=== PATIENT | male | born 1955 | race Caucasian/White ===

== ENCOUNTER 2018-08-31 21:14 | Observation (INO) | payer SELFPAY ==
[~2018-08-31] VITALS: Ht 193 cm; Wt 71.8 kg
[2018-08-31 21:36] LABS: CREATININE ISTAT 0.6 mg/dL (0.5-1.4); HEMOGLOBIN ISTAT 12.9 g/dL (14-18); ION CA ISTAT 1.16 mmol/L (1.13-1.32)
[2018-08-31 21:38] LABS: BASO # 0.1 x10^3/uL (0.0-0.2); BASO % 1 % (0-3); EOS # 0.2 x10^3/uL (0.0-0.7); EOS % 2 % (0-3); HEMATOCRIT 37.9 % (39.0-53.0); HEMOGLOBIN 12.9 g/dL (13.0-17.5); LYMPH # 1.7 x10^3/uL (1.0-4.8); LYMPH % 22 % (24-48); MEAN CORPUSCULAR HEMOGLOBIN 32 pg (25-35); MEAN CORPUSCULAR HGB CONC 34 g/dL (31-37); MEAN CORPUSCULAR VOLUME 94 fL (79-100); MONO # 0.3 x10^3/uL (0.0-1.1); MONO % 5 % (0-9); NEUT # 5.2 x10^3uL (1.8-7.7); NEUT % 70 % (31-73); PLATELET COUNT 177 x10^3/uL (140-400); RED BLOOD COUNT 4.04 x10^6/uL (4.30-5.70); RED CELL DISTRIBUTION WIDTH 12.9 % (11.5-14.5); WHITE BLOOD COUNT 7.4 x10^3/uL (4.0-11.0)
[2018-08-31] MEDS: NITROGLYCERIN SUBLINGUAL 0.4 MG BOTTLE OF 25. SL PRN ×3 (21:40→21:51)
[2018-08-31 21:47] LABS: AMYLASE 65 U/L (25-115); CALCIUM 9.4 mg/dL (8.5-10.1); CREATININE 0.7 mg/dL (0.7-1.3); GFR 113.9; LIPASE 98 U/L (73-393); POTASSIUM 4.1 mmol/L (3.5-5.1)
[2018-08-31 21:53] LABS: ALBUMIN 4.3 g/dL (3.4-5.0); ALBUMIN/GLOBULIN RATIO 1.1 (1.0-1.7); TOTAL BILIRUBIN 0.4 mg/dL (0.2-1.0); TOTAL PROTEIN 8.1 g/dL (6.4-8.2)
--- NOTE | 2018-08-31 21:53 | RAD ---
Chest radiograph 08/31/2018 9:15 PM INDICATION: Chest pain COMPARISON: None available TECHNIQUE: Portable upright frontal view of the chest is provided. FINDINGS: The cardiomediastinal silhouette is mildly enlarged. Median sternotomy changes are present. There are no pleural effusions. There is no pulmonary vascular congestion. There is no pneumothorax. Pulmonary emphysema is noted. No focal airspace consolidation. No significant osseous abnormality is identified. IMPRESSION: COPD changes are present. No focal airspace consolidation. Cardiomegaly. Electronically signed by: Carolyne Grace MD (08/31/2018 9:50 PM) [facility]
[2018-08-31] MEDS ORDERED: MORPHINE SULFATE 10 MG/ML VIAL. IV ONE (22:00)
[2018-08-31] MEDS ORDERED: ASPIRIN 325 MG TABLET PO ONE (22:00)
[2018-08-31] MEDS ORDERED: ONDANSETRON PF 4 MG/2 ML VIAL. IV ONE (22:00)
[2018-08-31 22:12] LABS: PROTHROMBIN TIME PATIENT 13.6 SEC (11.7-14.0)
[2018-08-31] MEDS ORDERED: CONTRAST GIVEN. MC PRN (22:15)
[2018-08-31] MEDS ORDERED: IOHEXOL 350 MG/ML 100 ML VIAL. IV ONE (22:30)
--- NOTE | 2018-08-31 22:50 | RAD ---
PQRS Compliance Statement: One or more of the following individualized dose reduction techniques were utilized for this examination: 1. Automated exposure control 2. Adjustment of the mA and/or kV according to patient size 3. Use of iterative reconstruction technique CT angiography chest, abdomen and pelvis August 31, 2018 INDICATION: Aortic dissection. COMPARISON: None available TECHNIQUE: Multiple axial CT images of the chest, abdomen and pelvis were obtained after the intravenous administration of 90 MLO Omnipaque 350. Coronal and sagittal reformats are provided. Maximum intensity projection images of the aortic vasculature are provided. FINDINGS: Nonvascular findings: Thyroid gland is normal in appearance. There are no pathologically enlarged axillary, mediastinal or hilar lymph nodes. Heart size is enlarged. Median sternotomy changes are present. There is biatrial enlargement. Moderate paraseptal emphysematous changes are identified. Biapical pleural parenchymal scarring is identified. There is a nodular opacity at the right lung apex which measures approximately 2.4 x 1.0 cm which may be associated with scarring, however a parenchymal mass is a differential consideration. There are no pleural effusions. There is bibasilar subsegmental atelectasis. No pulmonary vascular congestion or pneumothorax. Mild bronchial wall thickening is compatible with bronchitis. The liver, spleen, bilateral adrenal glands, pancreas and gallbladder are normal in appearance within the limitations of arterial phase of imaging. Kidneys enhance symmetrically. Numerous subcentimeter hypodense lesions are identified in the right kidney statistically favored represent simple cysts. There is a hypodense lesion in the medial interpolar right kidney measuring 2.7 cm with a thin enhancing septation (Bosniak 2F). There is no hydronephrosis. Small large bowel are normal in caliber. No evidence for bowel obstruction or inflammation. There is moderate colonic diverticulosis without adjacent inflammatory changes. Normal nondilated appendix is visualized. Urinary bladder is within normal limits given degree of distention. No suspicious pelvic masses are identified. No suspicious osseous abnormality is identified. Vascular findings: The aortic root measures 3.2 cm. Sinus of Valsalva measures 3.7 cm. Sinotubular junction measures 3.1 cm. Ascending thoracic aorta measures up to 4.0 cm. Coronary artery vascular calcifications are identified. No evidence for aortic dissection. Minor atherosclerotic plaque is visualized. Visualized portions of the brachiocephalic vessels appear widely patent. Ascending thoracic aorta is normal in course and caliber with mild calcified atheromatous plaque. Origin of celiac axis is widely patent. Superior mesenteric artery is widely patent. Infrarenal abdominal aorta is normal in caliber measuring 1.8 x 1.7 cm distally. There is moderate calcified atheromatous plaque. Right common iliac artery measures 11 mm. Left common iliac artery measures 13 mm. External iliac and internal iliac vessels are normal in caliber with moderate calcified atheromatous plaque involving the internal iliac arteries. IMPRESSION: 1. No evidence for aortic dissection. Ectasia of the ascending thoracic aorta measures up to 4.0 cm. 2. Nodular opacity at the right lung apex most favors scarring measuring 2.4 x 1.0 cm. A parenchymal mass is a differential consideration and a follow-up chest CT in 3 months versus PET/CT may be of benefit. 3. Moderate paraseptal emphysematous changes with mild bronchitis. 4. There is a 2.7 cm Bosniak 2F cyst in the medial interpolar right kidney. A six-month follow-up renal ultrasound or CT abdomen/pelvis may be of benefit to ensure stability. Electronically signed by: Carolyne Grace MD (08/31/2018 10:47 PM) [facility]
[2018-08-31 22:56] LABS: BILIRUBIN,URINE NEGATIVE (NEG); CLARITY,URINE CLEAR; COLOR,URINE YELLOW; NITRITE,URINE NEGATIVE (NEG); PROTEIN,URINE NEGATIVE (NEG-TRACE)
--- NOTE | 2018-08-31 23:00 | PHYS DOC ---
Past Medical History Past Medical History: COPD, Depression, Hypertension, Seizure (ALEE BARON APRN) Past Surgical History: Other Additional Past Surgical Histo: valve replacement (ALEE BARON APRN) Alcohol Use: Heavy Drug Use: Marijuana (ALEE BARON APRN) Adult General Chief Complaint Chief Complaint: CHEST PAIN HPI HPI Patient is a 63 year old male who presents with chest pain times approximately 5 minutes. 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 He has had a history of valve replacement surgery. He was writhing on the bed upon arrival. The patient's EKG was concerning for possible dissection. The patient states that he feels like it is a cramping pressure. He has nausea from the pain. He denies diaphoresis or shortness of breath. The patient does have history of emphysema. (ALEE BARON APRN) Review of Systems Review of Systems Constitutional: Denies fever or chills [] Eyes: Denies change in visual acuity, redness, or eye pain [] HENT: Denies nasal congestion or sore throat [] Respiratory: See history of present illness Cardiovascular: No additional information not addressed in HPI [] GI: See history of present illness : Denies dysuria or hematuria [] Musculoskeletal: Denies back pain or joint pain [] Integument: Denies rash or skin lesions [] Neurologic: Denies headache, focal weakness or sensory changes [] Endocrine: Denies polyuria or polydipsia [] All other systems were reviewed and found to be within normal limits, except as documented in this note. (ALEE BARON APRN) Current Medications Current Medications Current Medications Medications (Trade) Dose Ordered Sig/[facility] Start Time Stop Time Status Last Admin Dose Admin Aspirin (Shlomo Aspirin) 325 mg 1X ONCE 08/31/18 22:00 08/31/18 22:01 DC Info (CONTRAST GIVEN -- Rx MONITORING) 1 each PRN DAILY PRN 08/31/18 22:15 09/01/18 17:36 DC Iohexol (Omnipaque 350 Mg/ml) 90 ml 1X ONCE 08/31/18 22:30 08/31/18 22:31 DC 08/31/18 22:31 90 ML Morphine Sulfate (Morphine Sulfate) 5 mg 1X ONCE 08/31/18 22:00 08/31/18 22:01 DC 08/31/18 21:57 5 MG Nitroglycerin (Nitrostat) 0.4 mg PRN Q5MIN PRN 08/31/18 21:30 08/31/18 23:31 DC 08/31/18 21:51 0.4 MG Ondansetron HCl (Zofran) 4 mg 1X ONCE 08/31/18 22:00 08/31/18 22:01 DC 08/31/18 21:43 4 MG (HERB SILVERIO MD) Allergies Allergies Allergies Coded Allergies Type Severity Reaction Last Updated Verified Penicillins Allergy Intermediate 08/31/18 Yes (HERB SILVERIO MD) Physical Exam Physical Exam Constitutional: Well developed, well nourished, no acute distress, non-toxic appearance. [] HENT: Normocephalic, atraumatic, bilateral external ears normal, oropharynx moist, no oral exudates, nose normal. [] Eyes: PERRLA, EOMI, conjunctiva normal, no discharge. [] Neck: Normal range of motion, no tenderness, supple, no stridor. [] Cardiovascular:Heart rate regular rhythm Lungs & Thorax: Bilateral breath sounds clear to auscultation [] Abdomen: Bowel sounds normal, firm, tenderness to right upper quadrant, no masses, no pulsatile masses. [] Skin: Warm, dry, no erythema, no rash. [] Back: No tenderness, no CVA tenderness. [] Extremities: No tenderness, no cyanosis, no clubbing, ROM intact, no edema. [] Neurologic: Alert and oriented X 3, normal motor function, normal sensory function, no focal deficits noted. [] Psychologic: Affect normal, judgement normal, mood normal. [] (ALEE BARON APRN) Current Patient Data Vital Signs Vital Signs Date Time Temp Pulse Resp B/P (MAP) Pulse Ox O2 Delivery O2 Flow Rate FiO2 08/31/18 22:50 69 16 153/79 (103) 91 Room Air 08/31/18 21:15 98.6 98.6 (HERB SILVERIO MD) Lab Values Laboratory Tests Test 08/31/18 21:23 08/31/18 21:33 08/31/18 22:45 White Blood Count 7.4 x10^3/uL (4.0-11.0) Red Blood Count 4.04 x10^6/uL (4.30-5.70) L Hemoglobin 12.9 g/dL (13.0-17.5) L Hematocrit 37.9 % (39.0-53.0) L Mean Corpuscular Volume 94 fL (79-100) Mean Corpuscular Hemoglobin 32 pg (25-35) Mean Corpuscular Hemoglobin Concent 34 g/dL (31-37) Red Cell Distribution Width 12.9 % (11.5-14.5) Platelet Count 177 x10^3/uL (140-400) Neutrophils (%) (Auto) 70 % (31-73) Lymphocytes (%) (Auto) 22 % (24-48) L Monocytes (%) (Auto) 5 % (0-9) Eosinophils (%) (Auto) 2 % (0-3) Basophils (%) (Auto) 1 % (0-3) Neutrophils # (Auto) 5.2 x10^3uL (1.8-7.7) Lymphocytes # (Auto) 1.7 x10^3/uL (1.0-4.8) Monocytes # (Auto) 0.3 x10^3/uL (0.0-1.1) Eosinophils # (Auto) 0.2 x10^3/uL (0.0-0.7) Basophils # (Auto) 0.1 x10^3/uL (0.0-0.2) Prothrombin Time 13.6 SEC (11.7-14.0) Prothrombin Time INR 1.1 (0.8-1.1) PTT 32 SEC (24-38) Sodium Level 136 mmol/L (136-145) Potassium Level 4.1 mmol/L (3.5-5.1) Chloride Level 98 mmol/L (98-107) Carbon Dioxide Level 25 mmol/L (21-32) Anion Gap 13 (6-14) 16 mmol/L (6-14) H Blood Urea Nitrogen 9 mg/dL (8-26) Creatinine 0.7 mg/dL (0.7-1.3) Estimated GFR (Cockcroft-Gault) 113.9 BUN/Creatinine Ratio 13 (6-20) Glucose Level 97 mg/dL (70-99) 94 mg/dL (70-99) Calcium Level 9.4 mg/dL (8.5-10.1) Total Bilirubin 0.4 mg/dL (0.2-1.0) Aspartate Amino Transferase (AST) 16 U/L (15-37) Alanine Aminotransferase (ALT) 15 U/L (16-63) L Alkaline Phosphatase 59 U/L (46-116) Creatine Kinase 42 U/L (39-308) Creatine Kinase MB (Mass) 1.2 ng/mL (0.0-3.6) Creatine Kinase MB Relative Index 2.9 % (0-4) Troponin I Quantitative < 0.017 ng/mL (0.000-0.055) Total Protein 8.1 g/dL (6.4-8.2) Albumin 4.3 g/dL (3.4-5.0) Albumin/Globulin Ratio 1.1 (1.0-1.7) Amylase Level 65 U/L (25-115) Lipase 98 U/L (73-393) POC Hemoglobin 12.9 g/dL (14-18) L POC Hematocrit 38 % (37-52) POC Sodium 136 mmol/L (135-145) POC Potassium 4.0 mmol/L (3.5-5.0) POC Chloride 100 mmol/L (98-110) POC Total CO2 25 mmol/L (23-32) POC Blood Urea Nitrogen 9 mg/dL (8-26) POC Creatinine 0.6 mg/dL (0.5-1.4) POC Ionized Calcium (Zachariah) 1.16 mmol/L (1.13-1.32) Urine Color Yellow Urine Clarity Clear Urine pH 8.0 Urine Specific [place] 1.020 Urine Protein Negative mg/dL (NEG-TRACE) Urine Glucose (UA) Negative mg/dL (NEG) Urine Ketones (Stick) Negative mg/dL (NEG) Urine Blood Negative (NEG) Urine Nitrite Negative (NEG) Urine Bilirubin Negative (NEG) Urine Urobilinogen Dipstick 1.0 mg/dL (0.2 mg/dL) Urine Leukocyte Esterase Negative (NEG) Urine RBC 0 /HPF (0-2) Urine WBC Occ /HPF (0-4) Urine Squamous Epithelial Cells Occ /LPF Urine Bacteria 0 /HPF (0-FEW) Laboratory Tests 08/31/18 21:23 Laboratory Tests 08/31/18 21:23 08/31/18 21:33 (HERB SILVERIO MD) EKG EKG [] (ALEE BARON APRN) Radiology/Procedures Radiology/Procedures []PATIENT: ADE BLEVINS: [id number]#: [id number] : 1955 LOCATION: ER AGE: 63 SEX: M EXAM STATUS: REG ER ORD. PHYSICIAN: ALEE BARON APRN REASON: abdominal pain, r/o dissection PROCEDURE: CT ANGIO CHEST ABD PELVIS PQRS Compliance Statement: One or more of the following individualized dose reduction techniques were utilized for this examination: 1. Automated exposure control 2. Adjustment of the mA and/or kV according to patient size 3. Use of iterative reconstruction technique CT angiography chest, abdomen and pelvis August 31, 2018 INDICATION: Aortic dissection. COMPARISON: None available TECHNIQUE: Multiple axial CT images of the chest, abdomen and pelvis were obtained after the intravenous administration of 90 MLO Omnipaque 350. Coronal and sagittal reformats are provided. Maximum intensity projection images of the aortic vasculature are provided. FINDINGS: Nonvascular findings: Thyroid gland is normal in appearance. There are no pathologically enlarged axillary, mediastinal or hilar lymph nodes. Heart size is enlarged. Median sternotomy changes are present. There is biatrial enlargement. Moderate paraseptal emphysematous changes are identified. Biapical pleural parenchymal scarring is identified. There is a nodular opacity at the right lung apex which measures approximately 2.4 x 1.0 cm which may be associated with scarring, however a parenchymal mass is a differential consideration. There are no pleural effusions. There is bibasilar subsegmental atelectasis. No pulmonary vascular congestion or pneumothorax. Mild bronchial wall thickening is compatible with bronchitis. The liver, spleen, bilateral adrenal glands, pancreas and gallbladder are normal in appearance within the limitations of arterial phase of imaging. Kidneys enhance symmetrically. Numerous subcentimeter hypodense lesions are identified in the right kidney statistically favored represent simple cysts. There is a hypodense lesion in the medial interpolar right kidney measuring 2.7 cm with a thin enhancing septation (Bosniak 2F). There is no hydronephrosis. Small large bowel are normal in caliber. No evidence for bowel obstruction or inflammation. There is moderate colonic diverticulosis without adjacent inflammatory changes. Normal nondilated appendix is visualized. Urinary bladder is within normal limits given degree of distention. No suspicious pelvic masses are identified. No suspicious osseous abnormality is identified. Vascular findings: The aortic root measures 3.2 cm. Sinus of Valsalva measures 3.7 cm. Sinotubular junction measures 3.1 cm. Ascending thoracic aorta measures up to 4.0 cm. Coronary artery vascular calcifications are identified. No evidence for aortic dissection. Minor atherosclerotic plaque is visualized. Visualized portions of the brachiocephalic vessels appear widely patent. Ascending thoracic aorta is normal in course and caliber with mild calcified atheromatous plaque. Origin of celiac axis is widely patent. Superior mesenteric artery is widely patent. Infrarenal abdominal aorta is normal in caliber measuring 1.8 x 1.7 cm distally. There is moderate calcified atheromatous plaque. Right common iliac artery measures 11 mm. Left common iliac artery measures 13 mm. External iliac and internal iliac vessels are normal in caliber with moderate calcified atheromatous plaque involving the internal iliac arteries. IMPRESSION: 1. No evidence for aortic dissection. Ectasia of the ascending thoracic aorta measures up to 4.0 cm. 2. Nodular opacity at the right lung apex most favors scarring measuring 2.4 x 1.0 cm. A parenchymal mass is a differential consideration and a follow-up chest CT in 3 months versus PET/CT may be of benefit. 3. Moderate paraseptal emphysematous changes with mild bronchitis. 4. There is a 2.7 cm Bosniak 2F cyst in the medial interpolar right kidney. A six-month follow-up renal ultrasound or CT abdomen/pelvis may be of benefit to ensure stability. Electronically signed by: Demetria Martino MD (08/31/2018 10:47 PM) [facility] DICTATED and SIGNED BY: DEMETRIA MARTINO MD DATE: 08/31/18 [id number] (ALEE BARON APRN) Course & Med Decision Making Course & Med Decision Making Pertinent Labs and Imaging studies reviewed. (See chart for details) []The patient's troponin and CT scan were negative for dissection. He will be admitted to observation for serial troponins. He is in agreement with this plan. Cardiology is being consulted. He is being admitted to Dr. Obrien's service. (ALEE BARON APRN) Course & Med Decision Making Staff Physician Addendum: I was working in the ER during the course of this patient's visit. I was available for consultation as needed, I did briefly evaluate this patient (HERB SILVERIO MD) Dragon Disclaimer Dragon Disclaimer This electronic medical record was generated, in whole or in part, using a voice recognition dictation system. (ALEE BARON APRN) Departure Departure Impression: Primary Impression: Chest pain Disposition: ADMITTED INPATIENT Admitting Physician: Other (ALEE BARON APRN) Condition: GOOD Referrals: UNKNOWN PCP NAME (PCP) Scripts Metoprolol Succinate (METOPROLOL SUCCINATE ( XL )) 25 Mg Tab.er.24h 0.5 TAB PO DAILY for HTN for 30 Days, #15 TAB 5 Refills Prov: GINA OBRIEN MD 09/01/18 Amlodipine Besylate (AMLODIPINE BESYLATE) 5 Mg Tablet 5 MG PO DAILY for HTN for 30 Days, #30 TAB Prov: GINA OBRIEN MD 09/01/18 ALEE BARON APRN Aug 31, 2018 23:00 HERB SILVERIO MD Sep 03, 2018 06:42
[2018-08-31 23:02] LABS: BACTERIA,URINE 0 /HPF (0-FEW); RBC,URINE 0 /HPF (0-2); SQUAMOUS EPITHELIAL CELL,UR OCC /LPF; WBC,URINE OCC /HPF (0-4)
[2018-08-31] MEDS ORDERED: ONDANSETRON PF 4 MG/2 ML VIAL. IV PRN (23:30)
[2018-08-31] MEDS ORDERED: NITROGLYCERIN SUBLINGUAL 0.4 MG BOTTLE OF 25. SL PRN (23:30)
[2018-08-31] MEDS ORDERED: MORPHINE SULFATE 4 MG/ML VIAL. IV PRN (23:30)
[2018-09-01] VITALS (7 sets, daily range): BP systolic 132–172; BP diastolic 63–99
[2018-09-01] MEDS: IV NORMAL SALINE 1000ML BAG 1,000 ML IV SCH ×3 (02:29→13:13)
[2018-09-01 04:18] LABS: CHOLESTEROL/HDL RATIO 2.8
--- NOTE | 2018-09-01 06:23 | NUR ---
Patient does not know what prescriptions he takes. Patient states he fills prescriptions at the [facility] [address], in [place]. [phone]. RN checked hours of operation are 8am to 4pm. Unable to reconcile home medications at this time.
[2018-09-01] MEDS: IPRATRPIUM/ALBUTEROL 0.5/2.5MG 3 ML NEBU. NEB SCH ×2 (07:51→12:15)
--- NOTE | 2018-09-01 09:14 | EKG ---
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
--- NOTE | 2018-09-01 09:14 | EKG ---
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
[2018-09-01] MEDS ORDERED: PANTOPRAZOLE 40 MG TABLET.DR. PO ONE (10:00)
[2018-09-01 10:24] LABS: CREATININE 0.7 mg/dL (0.7-1.3); GFR 113.9
--- NOTE | 2018-09-01 10:24 | PDOC2 ---
CARDIAC CONSULT DATE OF CONSULT Date of Consult DATE: 09/01/18 TIME: 09:54 REASON FOR CONSULT Reason for Consult: Chest pain REFERRING PHYSICIAN Referring Physician: Silvina SOURCE Source: Chart review, Patient HISTORY OF PRESENT ILLNESS HISTORY OF PRESENT ILLNESS This is a 63 yo male admitted for complains of chest pain. Reports that he was driving and shoveling snow around the [employer] parking lot last night and started having midchest cramp and sharp pain which is also reproducible with palpation to epigastric region. No jaw tightness or arm heaviness at that time and no dizziness, palpitations but was hard for him to breath because of the pain. He says he always have SOA but its the same all the time. He does smoke marijuana, tobacco and drinks about 2 beers daily with a shot of hard liquor every so often. He has chronic pain and takes about 4 tabs of ibuprofen a day and does not take any pepcid nor prilosec. Denies any past GERD or PUD. He has had 2 cardiac valves repaired or replaced in the past and is taking blood thinners and thinks it is coumadin. The surgery was in 2013. No coronary bypass at that time as he was told he has a coronary that is lie a 20 yo person. He denies any frequent dizziness and no passing out but he did fall from roof 2 months ago but no traumatic injuries except for a broken tailbone but not related to passing out. He takes medications regularly but could not remember it. One information he told me was he was manually shoveling snow last week and after 10 minutes of activity he started having chest tightness, SOA, nausea and diaphoresis, so he stopped. That is the most exertion he has done in the last week. He does not been told in the past that he has bradycardia or any arrhythmias. No fever, chills, or persistent coughing. PAST MEDICAL HISTORY Cardiovascular: HTN Pulmonary: COPD CENTRAL NERVOUS SYSTEM: Seizure (ETOH related and not on seizure med with last episodes prior to 2014 heart surgery) GI: No pertinent hx Heme/Onc: No pertinent hx Hepatobiliary: No pertinent hx Psych: Depression Musculoskeletal: low back pain, Osteoarthritis Rheumatologic: No pertinent hx Infectious disease: No pertinent hx ENT: No pertinent hx Renal/: No pertinent hx Endocrine: No pertinent hx Dermatology: Other (skin CA) PAST SURGICAL HISTORY Past Surgical History: Arthroscopy (left shoulder and left knee repair), Tonsillectomy, Other (open cardiac valve x2 replacement per pt unknown) FAMILY HISTORY Family History: Heart Disease (grandparents) SOCIAL HISTORY Smoke: 1 pack per day (>40 yrs) ALCOHOL: other (2 beers a day) Drugs: Marijuana Lives: Alone CURRENT MEDICATIONS CURRENT MEDICATIONS Current Medications Medications (Trade) Dose Ordered Sig/Ryan Route PRN Reason Start Time Stop Time Status Last Admin Dose Admin Nitroglycerin (Nitrostat) 0.4 mg PRN Q5MIN PRN SL CHEST PAIN 08/31/18 21:30 08/31/18 23:31 DC 08/31/18 21:51 Morphine Sulfate (Morphine Sulfate) 5 mg 1X ONCE IV 08/31/18 22:00 08/31/18 22:01 DC 08/31/18 21:57 Ondansetron HCl (Zofran) 4 mg 1X ONCE IV 08/31/18 22:00 08/31/18 22:01 DC 08/31/18 21:43 Iohexol (Omnipaque 350 Mg/ml) 90 ml 1X ONCE IV 08/31/18 22:30 08/31/18 22:31 DC 08/31/18 22:31 Ondansetron HCl (Zofran) 4 mg PRN Q8HRS PRN IV NAUSEA/VOMITING 1ST CHOICE 08/31/18 23:30 09/01/18 23:29 09/01/18 02:36 Morphine Sulfate (Morphine Sulfate) 4 mg PRN Q2HR PRN IV SEVERE PAIN 08/31/18 23:30 09/01/18 23:29 09/01/18 02:35 Sodium Chloride 1,000 ml @ 125 mls/hr Q8H IV 08/31/18 23:45 09/01/18 23:44 09/01/18 02:31 ALLERGIES ALLERGIES: Coded Allergies: Penicillins (Verified Allergy, Intermediate, 08/31/18) ROS Review of System 14 point ROS evaluated with pertinent positives noted per HPI PHYSICAL EXAM General: Alert, Oriented X3, Cooperative, No acute distress HEENT: Atraumatic, Mucous membr. moist/pink Lungs: Clear to auscultation, Normal air movement Heart: Regular rate (SB), Normal S1, Normal S2, Other (2/6 systolic murmur to LLS border) Abdomen: Soft, Other (epigastric tenderness) Extremities: No cyanosis, No edema Skin: No breakdown, No significant lesion Psych/Mental Status: Mental status NL, Other (flat affect) MUSCULOSKELETAL: Osteoarthritic changes both hands VITALS VITALS Vital Signs Date Time Temp Pulse Resp B/P (MAP) Pulse Ox O2 Delivery O2 Flow Rate FiO2 09/01/18 07:45 Nasal Cannula 2.0 09/01/18 07:20 97.5 63 20 164/82 (109) 99 97.5 LABS Lab: Laboratory Tests Test 08/31/18 21:23 08/31/18 21:33 08/31/18 22:45 09/01/18 00:20 White Blood Count 7.4 x10^3/uL (4.0-11.0) Red Blood Count 4.04 x10^6/uL (4.30-5.70) Hemoglobin 12.9 g/dL (13.0-17.5) Hematocrit 37.9 % (39.0-53.0) Mean Corpuscular Volume 94 fL (79-100) Mean Corpuscular Hemoglobin 32 pg (25-35) Mean Corpuscular Hemoglobin Concent 34 g/dL (31-37) Red Cell Distribution Width 12.9 % (11.5-14.5) Platelet Count 177 x10^3/uL (140-400) Neutrophils (%) (Auto) 70 % (31-73) Lymphocytes (%) (Auto) 22 % (24-48) Monocytes (%) (Auto) 5 % (0-9) Eosinophils (%) (Auto) 2 % (0-3) Basophils (%) (Auto) 1 % (0-3) Neutrophils # (Auto) 5.2 x10^3uL (1.8-7.7) Lymphocytes # (Auto) 1.7 x10^3/uL (1.0-4.8) Monocytes # (Auto) 0.3 x10^3/uL (0.0-1.1) Eosinophils # (Auto) 0.2 x10^3/uL (0.0-0.7) Basophils # (Auto) 0.1 x10^3/uL (0.0-0.2) Prothrombin Time 13.6 SEC (11.7-14.0) Prothromb Time International Ratio 1.1 (0.8-1.1) Activated Partial Thromboplast Time 32 SEC (24-38) Sodium Level 136 mmol/L (136-145) Potassium Level 4.1 mmol/L (3.5-5.1) Chloride Level 98 mmol/L (98-107) Carbon Dioxide Level 25 mmol/L (21-32) Anion Gap 13 (6-14) 16 mmol/L (6-14) Blood Urea Nitrogen 9 mg/dL (8-26) Creatinine 0.7 mg/dL (0.7-1.3) Estimated GFR (Cockcroft-Gault) 113.9 BUN/Creatinine Ratio 13 (6-20) Glucose Level 97 mg/dL (70-99) 94 mg/dL (70-99) Calcium Level 9.4 mg/dL (8.5-10.1) Total Bilirubin 0.4 mg/dL (0.2-1.0) Aspartate Amino Transf (AST/SGOT) 16 U/L (15-37) Alanine Aminotransferase (ALT/SGPT) 15 U/L (16-63) Alkaline Phosphatase 59 U/L (46-116) Creatine Kinase 42 U/L (39-308) Creatine Kinase MB (Mass) 1.2 ng/mL (0.0-3.6) Creatine Kinase MB Relative Index 2.9 % (0-4) Troponin I Quantitative < 0.017 ng/mL (0.000-0.055) < 0.017 ng/mL (0.000-0.055) Total Protein 8.1 g/dL (6.4-8.2) Albumin 4.3 g/dL (3.4-5.0) Albumin/Globulin Ratio 1.1 (1.0-1.7) Amylase Level 65 U/L (25-115) Lipase 98 U/L (73-393) Bedside Hemoglobin 12.9 g/dL (14-18) Bedside Hematocrit 38 % (37-52) Bedside Sodium 136 mmol/L (135-145) Bedside Potassium 4.0 mmol/L (3.5-5.0) Bedside Chloride 100 mmol/L (98-110) Bedside Total CO2 25 mmol/L (23-32) Bedside Blood Urea Nitrogen 9 mg/dL (8-26) Bedside Creatinine 0.6 mg/dL (0.5-1.4) Bedside Ionized Calcium (Zachariah) 1.16 mmol/L (1.13-1.32) Urine Color Yellow Urine Clarity Clear Urine pH 8.0 Urine Specific [place] 1.020 Urine Protein Negative mg/dL (NEG-TRACE) Urine Glucose (UA) Negative mg/dL (NEG) Urine Ketones (Stick) Negative mg/dL (NEG) Urine Blood Negative (NEG) Urine Nitrite Negative (NEG) Urine Bilirubin Negative (NEG) Urine Urobilinogen Dipstick 1.0 mg/dL (0.2 mg/dL) Urine Leukocyte Esterase Negative (NEG) Urine RBC 0 /HPF (0-2) Urine WBC Occ /HPF (0-4) Urine Squamous Epithelial Cells Occ /LPF Urine Bacteria 0 /HPF (0-FEW) Test 09/01/18 03:30 Troponin I Quantitative < 0.017 ng/mL (0.000-0.055) Triglycerides Level 48 mg/dL (0-150) Cholesterol Level 134 mg/dL (0-200) LDL Cholesterol, Calculated 76 mg/dL (0-100) VLDL Cholesterol, Calculated 10 mg/dL (0-40) Non-HDL Cholesterol Calculated 86 mg/dL (0-129) HDL Cholesterol 48 mg/dL (40-60) Cholesterol/HDL Ratio 2.8 ASSESSMENT/PLAN ASSESSMENT/PLAN 1. Atypical CP: suspect GI but he did have typical CP last wk as noted in HPI. 2. Valvular repair: unknown type repair or replacement. 3. HTN: labile 4. Asymptomatic SB: QTc nml. No blocks or pauses. Suspect related to AV juan c blocking agents. Lowest at 38 recorded. 5. Chronic NSAID use 6. Chronic ETOH use: 2 beers a day with hard liquor PRN 7. Marijuana use 8. COPD with tobaccoism 9. Coumadin use?: pt verbalized but INR is nml. Recommendations 1. TTE today. Trops nml and EKG SB without acute ST-t wave changes. MPI today 2. Start on PPI. Discussed about alternatives to NSAIDs. 3. Will obtain accurate med list as pt does not remember it and will [facility] 4. Avoid AV juan c blocking agents. amlodipine x1. 5. TSH, UDS, BMP and Mg 6. SMoking and marijuana cessation and to curb ETOH use. JUSTEN ELLSWORTH APRN Sep 01, 2018 10:24
--- NOTE | 2018-09-01 10:28 | CARD ---
MR#: [id number] Date of Study: 09/01/2018 Ordering Physician: JUSTEN ELLSWORTH, Referring Physician: GINA OBRIEN Tech: Mai Denton RDCS APPROVED REPORT EXAM: Two-dimensional and M-mode echocardiogram with Doppler and color Doppler. Other Information Quality : Good INDICATION Chest Pain Mitral Valve Disease Mitral Valve Annuloplasty-Repair 06/19/14- 36 mm 2D DIMENSIONS RVDd2.8 (2.9-3.5cm)Left Atrium(2D)5.0 (1.6-4.0cm) IVSd1.1 (0.7-1.1cm)Aortic Root(2D)2.9 (2.0-3.7cm) LVDd5.6 (3.9-5.9cm)LVOT Diameter2.4 (1.8-2.4cm) PWd0.9 (0.7-1.1cm)LVDs2.8 (2.5-4.0cm) FS (%) 30.0 %SV124.5 ml LVEF(%)60.0 (>50%) Aortic Valve AoV Peak Petar.136.1cm/sAoV VTI31.9cm AO Peak GR.7.4mmHgLVOT Peak Petar.90.0cm/s LVOT VTI 22.41cmAO Mean GR.4mmHg BHAVANI (VMAX)2.39or1MNR (VTI)3.07cm2 Mitral Valve MV E Jyybmgyh229.3cm/sMV DECEL [id number] MV A Fdauxuql72.8cm/sMV E Mean Gr.3mmHg MV LXL41hnX/A Ratio7.2 MVA (PHT)3.59cm2 TDI E/Lateral E'17.9E/Medial E'20.4 Tricuspid Valve TR P. Jdzddhva414nf/sRAP JLPISIPB6uiDs TR Peak Gr.44hzOdLDGV23mxMk Pulmonary Vein S1 Duqhcamx45.0cm/sD2 Lvostnlm391.9cm/s LEFT VENTRICLE The left ventricle is normal size. There is normal left ventricular wall thickness. The left ventricu lar systolic function is normal. The Ejection Fraction is 60%. There is normal LV segmental wall marcos on. RIGHT VENTRICLE The right ventricle is normal size. The right ventricular systolic function is normal. ATRIA The left atrium is mildly dilated. The right atrium is mildly dilated. The interatrial septum is inta ct with no evidence for an atrial septal defect or patent foramen ovale as noted on 2-D or Doppler im aging. AORTIC VALVE The aortic valve is calcified but opens well. Doppler and Color Flow revealed trace aortic regurgitat ion. There is no significant aortic valvular stenosis. MITRAL VALVE There is no evidence of mitral valve prolapse. The mitral valve mean is 3 mmHg. Doppler and Color-brenda w revealed trace to mild mitral regurgitation. There is an Disla annuloplasty 36mm in the mitral po sition. TRICUSPID VALVE Doppler and Color Flow revealed mild tricuspid regurgitation. There is mild pulmonary hypertension. T he PA pressure was estimated at 39 mmHg. There is no tricuspid valve stenosis. There is a porcine bio prosthetic tricuspid valve. PULMONIC VALVE The pulmonary valve is normal in structure and function. Doppler and Color Flow revealed mild pulmoni c valvular regurgitation. There is no pulmonic valvular stenosis. GREAT VESSELS The aortic root is normal in size. The ascending aorta is not well seen. The IVC is dilated and colla pses >50% with inspiration. PERICARDIAL EFFUSION There is no evidence of significant pericardial effusion. Critical Notification Critical Value: No <Conclusion> The left ventricular systolic function is normal. The Ejection Fraction is 60%. There is normal LV segmental wall motion. There is an Disla annuloplasty ring 36mm in the mitral position. No mitral stenosis. Trace to mild mitral regurgitation. Mild tricuspid regurgitation. There is mild pulmonary hypertension. The PA pressure was estimated at 39 mmHg. There is no evidence of significant pericardial effusion. Signed by : Ozzy Cantu, Electronically Approved : 09/01/2018 10:28:14
[2018-09-01] MEDS ORDERED: amLODIPine BESYLATE 10 MG TABLET PO SCH (11:00)
[2018-09-01] MEDS ORDERED: REGADENOSON 0.4 MG/5 ML DISP.SYRIN. IV ONE (11:00)
[2018-09-01] MEDS ORDERED: FOLI1TAB16 PO (13:03)
[2018-09-01] MEDS ORDERED: LOSA100T14 PO (13:05)
[2018-09-01] MEDS ORDERED: MULT1TAB52 PO (13:05)
[2018-09-01] MEDS ORDERED: CHOL10003 PO (13:05)
[2018-09-01] MEDS ORDERED: METO-269 PO (13:22)
--- NOTE | 2018-09-01 13:51 | PDOC1 ---
History and Physical Date of Admission Date of Admission 09/01/2018 Identification/Chief Complaint Chief Complaint chest pain Problems: (1) Chest pain Source Source: Chart review, Patient History of Present Illness History of Present Illness Patient is a 63-year-old gentleman with past medical history of valvulopathy which required to biological valves to be placed several years ago. The patient is also chronic anticoagulation and takes antihypertensives on the regular basis. Yesterday he was one of the cruise clearing up the snow outside the hospital when after shoveling snow he started complaining of chest discomfort over the precordial area. The patient did not have sensation of impending doom he describes pain as a sharp sensation 8-9 out of 10 intensity with no radiation to the carotids no radiation to the arm or the jaw. The patient denies dyspnea no nausea vomiting or diaphoresis was reported alongside with the discomfort. We were asked to admit the patient for further evaluation and treatment. The patient so far has had 3 sets of cardiac enzymes negative. The patient is laying in bed in no apparent distress the pain is reproducible and seems to be of musculoskeletal nature in my opinion. I have provided reassurance to the patient and plan of care has been delineated in detail. All concerns were addressed to the best of my abilities Past Medical History Cardiovascular: HTN Pulmonary: COPD CENTRAL NERVOUS SYSTEM: Seizure (ETOH related and not on seizure med with last episodes prior to 2013 heart surgery) GI: No pertinent hx Heme/Onc: No pertinent hx Hepatobiliary: No pertinent hx Psych: Depression Rheumatologic: No pertinent hx Infectious disease: No pertinent hx ENT: No pertinent hx Renal/: No pertinent hx Endocrine: No pertinent hx Dermatology: Other (skin CA) Past Surgical History Past Surgical History: Arthroscopy (left shoulder and left knee repair), Tonsillectomy, Other (open cardiac valve x2 replacement per pt unknown) Family History Family History: Heart Disease (grandparents) Social History Smoke: 1 pack per day (>40 yrs) ALCOHOL: other (2 beers a day) Drugs: Marijuana Current Problem List Problem List Problems Medical Problems: (1) Chest pain Status: Acute Current Medications Current Medications Current Medications Medications (Trade) Dose Ordered Sig/Ryan Start Time Stop Time Status Last Admin Dose Admin Albuterol/ Ipratropium (Duoneb) 3 ml RTQID 09/01/18 08:00 09/02/18 07:59 09/01/18 12:15 3 ML Amlodipine Besylate (Norvasc) 10 mg DAILY 09/01/18 11:00 09/01/18 12:18 10 MG Aspirin (Shlomo Aspirin) 325 mg 1X ONCE 08/31/18 22:00 08/31/18 22:01 DC Info (CONTRAST GIVEN -- Rx MONITORING) 1 each PRN DAILY PRN 08/31/18 22:15 09/02/18 22:14 Iohexol (Omnipaque 350 Mg/ml) 90 ml 1X ONCE 08/31/18 22:30 08/31/18 22:31 DC 08/31/18 22:31 90 ML Morphine Sulfate (Morphine Sulfate) 4 mg PRN Q2HR PRN 08/31/18 23:30 09/01/18 23:29 09/01/18 02:35 4 MG Nitroglycerin (Nitrostat) 0.4 mg PRN Q5MIN PRN 08/31/18 23:30 09/01/18 23:29 Ondansetron HCl (Zofran) 4 mg PRN Q8HRS PRN 08/31/18 23:30 09/01/18 23:29 09/01/18 02:36 4 MG Pantoprazole Sodium (Protonix) 40 mg 1X ONCE 09/01/18 10:00 09/01/18 10:09 DC 09/01/18 12:18 40 MG Regadenoson (Lexiscan) 0.4 mg 1X ONCE 09/01/18 11:00 09/01/18 11:01 DC 09/01/18 11:00 0.4 MG Sodium Chloride 1,000 ml @ 125 mls/hr Q8H 08/31/18 23:45 09/01/18 13:17 DC 09/01/18 02:31 125 MLS/HR Allergies Allergies Allergies Coded Allergies Type Severity Reaction Last Updated Verified Penicillins Allergy Intermediate 08/31/18 Yes ROS Review of System CONSTITUTIONAL: No fever or chills EYES: No recent changes SKIN: No rash or itching CARDIOVASCULAR: No chest pain, syncope, palpitations, or edema RESPIRATORY: No SOB or cough GASTROINTESTINAL: No nausea, vomiting or abdominal pain NEUROLOGICAL: No headaches or weakness ENDOCRINE: No cold or heat intolerance GENITOURINARY: No urgency or frequency of urination MUSCULOSKELETAL: No back pain or joint pain LYMPHATICS: No enlarged lymph nodes PSYCHIATRIC: No anxiety or depression Physical Exam Physical Exam GEN.: No apparent distress. Alert and oriented. HEENT: Head is normocephalic, atraumatic NECK: Supple. LUNGS: Clear to auscultation. HEART: RRR, S1, S2 present. Peripheral pulses intact ABDOMEN: Soft, nontender. Positive bowel sounds. EXTREMITIES: Without any cyanosis. NEUROLOGIC: Normal speech, normal tone PSYCHIATRIC: Normal affect, normal mood. SKIN: No ulcerations Vitals Vitals Vital Signs Date Time Temp Pulse Resp B/P (MAP) Pulse Ox O2 Delivery O2 Flow Rate FiO2 09/01/18 12:18 Nasal Cannula 3.0 09/01/18 12:18 52 160/68 09/01/18 11:00 97.5 16 100 97.5 Labs Labs Laboratory Tests Test 08/31/18 21:23 08/31/18 21:33 08/31/18 22:45 09/01/18 00:20 White Blood Count 7.4 x10^3/uL (4.0-11.0) Red Blood Count 4.04 x10^6/uL (4.30-5.70) Hemoglobin 12.9 g/dL (13.0-17.5) Hematocrit 37.9 % (39.0-53.0) Mean Corpuscular Volume 94 fL (79-100) Mean Corpuscular Hemoglobin 32 pg (25-35) Mean Corpuscular Hemoglobin Concent 34 g/dL (31-37) Red Cell Distribution Width 12.9 % (11.5-14.5) Platelet Count 177 x10^3/uL (140-400) Neutrophils (%) (Auto) 70 % (31-73) Lymphocytes (%) (Auto) 22 % (24-48) Monocytes (%) (Auto) 5 % (0-9) Eosinophils (%) (Auto) 2 % (0-3) Basophils (%) (Auto) 1 % (0-3) Neutrophils # (Auto) 5.2 x10^3uL (1.8-7.7) Lymphocytes # (Auto) 1.7 x10^3/uL (1.0-4.8) Monocytes # (Auto) 0.3 x10^3/uL (0.0-1.1) Eosinophils # (Auto) 0.2 x10^3/uL (0.0-0.7) Basophils # (Auto) 0.1 x10^3/uL (0.0-0.2) Prothrombin Time 13.6 SEC (11.7-14.0) Prothromb Time International Ratio 1.1 (0.8-1.1) Activated Partial Thromboplast Time 32 SEC (24-38) Sodium Level 136 mmol/L (136-145) Potassium Level 4.1 mmol/L (3.5-5.1) Chloride Level 98 mmol/L (98-107) Carbon Dioxide Level 25 mmol/L (21-32) Anion Gap 13 (6-14) 16 mmol/L (6-14) Blood Urea Nitrogen 9 mg/dL (8-26) Creatinine 0.7 mg/dL (0.7-1.3) Estimated GFR (Cockcroft-Gault) 113.9 BUN/Creatinine Ratio 13 (6-20) Glucose Level 97 mg/dL (70-99) 94 mg/dL (70-99) Calcium Level 9.4 mg/dL (8.5-10.1) Total Bilirubin 0.4 mg/dL (0.2-1.0) Aspartate Amino Transf (AST/SGOT) 16 U/L (15-37) Alanine Aminotransferase (ALT/SGPT) 15 U/L (16-63) Alkaline Phosphatase 59 U/L (46-116) Creatine Kinase 42 U/L (39-308) Creatine Kinase MB (Mass) 1.2 ng/mL (0.0-3.6) Creatine Kinase MB Relative Index 2.9 % (0-4) Troponin I Quantitative < 0.017 ng/mL (0.000-0.055) < 0.017 ng/mL (0.000-0.055) Total Protein 8.1 g/dL (6.4-8.2) Albumin 4.3 g/dL (3.4-5.0) Albumin/Globulin Ratio 1.1 (1.0-1.7) Amylase Level 65 U/L (25-115) Lipase 98 U/L (73-393) Bedside Hemoglobin 12.9 g/dL (14-18) Bedside Hematocrit 38 % (37-52) Bedside Sodium 136 mmol/L (135-145) Bedside Potassium 4.0 mmol/L (3.5-5.0) Bedside Chloride 100 mmol/L (98-110) Bedside Total CO2 25 mmol/L (23-32) Bedside Blood Urea Nitrogen 9 mg/dL (8-26) Bedside Creatinine 0.6 mg/dL (0.5-1.4) Bedside Ionized Calcium (Zachariah) 1.16 mmol/L (1.13-1.32) Urine Color Yellow Urine Clarity Clear Urine pH 8.0 Urine Specific Stephenson 1.020 Urine Protein Negative mg/dL (NEG-TRACE) Urine Glucose (UA) Negative mg/dL (NEG) Urine Ketones (Stick) Negative mg/dL (NEG) Urine Blood Negative (NEG) Urine Nitrite Negative (NEG) Urine Bilirubin Negative (NEG) Urine Urobilinogen Dipstick 1.0 mg/dL (0.2 mg/dL) Urine Leukocyte Esterase Negative (NEG) Urine RBC 0 /HPF (0-2) Urine WBC Occ /HPF (0-4) Urine Squamous Epithelial Cells Occ /LPF Urine Bacteria 0 /HPF (0-FEW) Test 09/01/18 03:30 Sodium Level 137 mmol/L (136-145) Potassium Level 4.0 mmol/L (3.5-5.1) Chloride Level 100 mmol/L (98-107) Carbon Dioxide Level 26 mmol/L (21-32) Anion Gap 11 (6-14) Blood Urea Nitrogen 10 mg/dL (8-26) Creatinine 0.7 mg/dL (0.7-1.3) Estimated GFR (Cockcroft-Gault) 113.9 Glucose Level 91 mg/dL (70-99) Calcium Level 9.0 mg/dL (8.5-10.1) Magnesium Level 2.0 mg/dL (1.8-2.4) Troponin I Quantitative < 0.017 ng/mL (0.000-0.055) Triglycerides Level 48 mg/dL (0-150) Cholesterol Level 134 mg/dL (0-200) LDL Cholesterol, Calculated 76 mg/dL (0-100) VLDL Cholesterol, Calculated 10 mg/dL (0-40) Non-HDL Cholesterol Calculated 86 mg/dL (0-129) HDL Cholesterol 48 mg/dL (40-60) Cholesterol/HDL Ratio 2.8 Thyroid Stimulating Hormone (TSH) 3.449 uIU/mL (0.358-3.74) Laboratory Tests Test 08/31/18 21:23 08/31/18 21:33 08/31/18 22:45 09/01/18 00:20 White Blood Count 7.4 x10^3/uL (4.0-11.0) Red Blood Count 4.04 x10^6/uL (4.30-5.70) Hemoglobin 12.9 g/dL (13.0-17.5) Hematocrit 37.9 % (39.0-53.0) Mean Corpuscular Volume 94 fL (79-100) Mean Corpuscular Hemoglobin 32 pg (25-35) Mean Corpuscular Hemoglobin Concent 34 g/dL (31-37) Red Cell Distribution Width 12.9 % (11.5-14.5) Platelet Count 177 x10^3/uL (140-400) Neutrophils (%) (Auto) 70 % (31-73) Lymphocytes (%) (Auto) 22 % (24-48) Monocytes (%) (Auto) 5 % (0-9) Eosinophils (%) (Auto) 2 % (0-3) Basophils (%) (Auto) 1 % (0-3) Neutrophils # (Auto) 5.2 x10^3uL (1.8-7.7) Lymphocytes # (Auto) 1.7 x10^3/uL (1.0-4.8) Monocytes # (Auto) 0.3 x10^3/uL (0.0-1.1) Eosinophils # (Auto) 0.2 x10^3/uL (0.0-0.7) Basophils # (Auto) 0.1 x10^3/uL (0.0-0.2) Prothrombin Time 13.6 SEC (11.7-14.0) Prothromb Time International Ratio 1.1 (0.8-1.1) Activated Partial Thromboplast Time 32 SEC (24-38) Sodium Level 136 mmol/L (136-145) Potassium Level 4.1 mmol/L (3.5-5.1) Chloride Level 98 mmol/L (98-107) Carbon Dioxide Level 25 mmol/L (21-32) Anion Gap 13 (6-14) 16 mmol/L (6-14) Blood Urea Nitrogen 9 mg/dL (8-26) Creatinine 0.7 mg/dL (0.7-1.3) Estimated GFR (Cockcroft-Gault) 113.9 BUN/Creatinine Ratio 13 (6-20) Glucose Level 97 mg/dL (70-99) 94 mg/dL (70-99) Calcium Level 9.4 mg/dL (8.5-10.1) Total Bilirubin 0.4 mg/dL (0.2-1.0) Aspartate Amino Transf (AST/SGOT) 16 U/L (15-37) Alanine Aminotransferase (ALT/SGPT) 15 U/L (16-63) Alkaline Phosphatase 59 U/L (46-116) Creatine Kinase 42 U/L (39-308) Creatine Kinase MB (Mass) 1.2 ng/mL (0.0-3.6) Creatine Kinase MB Relative Index 2.9 % (0-4) Troponin I Quantitative < 0.017 ng/mL (0.000-0.055) < 0.017 ng/mL (0.000-0.055) Total Protein 8.1 g/dL (6.4-8.2) Albumin 4.3 g/dL (3.4-5.0) Albumin/Globulin Ratio 1.1 (1.0-1.7) Amylase Level 65 U/L (25-115) Lipase 98 U/L (73-393) Bedside Hemoglobin 12.9 g/dL (14-18) Bedside Hematocrit 38 % (37-52) Bedside Sodium 136 mmol/L (135-145) Bedside Potassium 4.0 mmol/L (3.5-5.0) Bedside Chloride 100 mmol/L (98-110) Bedside Total CO2 25 mmol/L (23-32) Bedside Blood Urea Nitrogen 9 mg/dL (8-26) Bedside Creatinine 0.6 mg/dL (0.5-1.4) Bedside Ionized Calcium (Zachariah) 1.16 mmol/L (1.13-1.32) Urine Color Yellow Urine Clarity Clear Urine pH 8.0 Urine Specific Stephenson 1.020 Urine Protein Negative mg/dL (NEG-TRACE) Urine Glucose (UA) Negative mg/dL (NEG) Urine Ketones (Stick) Negative mg/dL (NEG) Urine Blood Negative (NEG) Urine Nitrite Negative (NEG) Urine Bilirubin Negative (NEG) Urine Urobilinogen Dipstick 1.0 mg/dL (0.2 mg/dL) Urine Leukocyte Esterase Negative (NEG) Urine RBC 0 /HPF (0-2) Urine WBC Occ /HPF (0-4) Urine Squamous Epithelial Cells Occ /LPF Urine Bacteria 0 /HPF (0-FEW) Test 09/01/18 03:30 Sodium Level 137 mmol/L (136-145) Potassium Level 4.0 mmol/L (3.5-5.1) Chloride Level 100 mmol/L (98-107) Carbon Dioxide Level 26 mmol/L (21-32) Anion Gap 11 (6-14) Blood Urea Nitrogen 10 mg/dL (8-26) Creatinine 0.7 mg/dL (0.7-1.3) Estimated GFR (Cockcroft-Gault) 113.9 Glucose Level 91 mg/dL (70-99) Calcium Level 9.0 mg/dL (8.5-10.1) Magnesium Level 2.0 mg/dL (1.8-2.4) Troponin I Quantitative < 0.017 ng/mL (0.000-0.055) Triglycerides Level 48 mg/dL (0-150) Cholesterol Level 134 mg/dL (0-200) LDL Cholesterol, Calculated 76 mg/dL (0-100) VLDL Cholesterol, Calculated 10 mg/dL (0-40) Non-HDL Cholesterol Calculated 86 mg/dL (0-129) HDL Cholesterol 48 mg/dL (40-60) Cholesterol/HDL Ratio 2.8 Thyroid Stimulating Hormone (TSH) 3.449 uIU/mL (0.358-3.74) VTE Prophylaxis Ordered VTE Prophylaxis Devices: No VTE Pharmacological Prophylaxi: Yes Assessment/Plan Assessment/Plan Chest pain reproducible musculoskeletal in nature most likely Valvulopathy status post biological valve replacement Essential hypertension fairly controlled History of chronic anticoagulation Plan: Follow quality compliance consultant recommendations. Patient currently has 3 sets of cardiac enzymes negative Patient will be sent for an echocardiogram transthoracic. Further recommendations based on energy consultant's recommendations DVT prophylaxis with hsi chornic anticoagulation Problem Qualifiers (1) Chest pain: Chest pain type: other chest pain Qualified Codes: R07.89 - Other chest pain GINA OBRIEN MD Sep 01, 2018 13:51
--- NOTE | 2018-09-01 14:03 | RAD ---
MR#: [id number] Date of Study: 09/01/2018 Ordering Physician: JUSTEN ELLSWORTH, Referring Physician: ANGELES MUNOZ Tech: EVERARDO Hagen APPROVED REPORT Test Type: Pharmacological Stress Nurse/Tech: Lara Gutierres R.N. Test Indications: cp, dyspnea Cardiac History: cabg 2013, copd,htn,smoker Medications: see ehr Medical History: see ehr Resting ECG: sb with pvcs and pacs noted Resting Heart Rate: 52 bpm Resting Blood Pressure: 175/75mmHg Pretest Chest Pain: Typical angina Nurse/Tech Notes lungs diminished, on O2 at 3L/nc Consent: The procedure was explained to the patient in lay terms. Informed consent was witnessed. Bill eout was entered into [employer]. History and Stress Test performed by EVERARDO Hagen Pharm. Details Pharmacologic stress testing was performed using 0.4mg per 5ml of regadenoson given intravenously ove r 7-10 seconds. Stress Symptoms Dyspnea, pt c/o cp before start of procedure 2/10, pain increased to 8/10 in first minute of recovery and then subsided to 3/10 at end of recovery, no changes noted to ECG POST EXERCISE Reason for Termination: Infusion complete Target HR: No Max HR: 68 bpm Max Blood Pressure: 163/74mmHg Chest Pain: Yes. see above Arrhythmia: Yes. pvcs and pacs intermittantly throughout test ST Change: No. INTERPRETATION Stress EKG Conclusion: No acute ischemic changes noted. Imaging Protocol IMAGE PROTOCOL: Rest Tc-99m/stress Tc-99m 1 day Rest: Stress: Viability: Radiopharm.Tc99m [id number] Sestamibi Dose10.7mCi 33mCi Duration 15min. 10min. Img Date 09/01/2018 09/01/2018 Inj-Img [id number]. 60min. Rest Admin Site:IV - Left ForearmAdministrator:EVERARDO Hagen Stress Admin Site: IV - Left ForearmAdministrator: EVERARDO Hagen STRESS DATA End Diast. Vol.176.0mlAv. Heart Rate69.0bpm End Syst. Vol.42.0mlCO Index BSA9.2L/min Myocardial Wwbx987.0gEject. Ulqtfhfw38.0% Stress Rates Pk. Fill Rate3.07EDV/secLVtime Pk. Fill 160.84msec Pk. Empty Rate3.54ESV/secLVtime Pk. Tnhwy212.74msec 1/3 Pk. Fill1.39EDV/sec Stress Scores Regional WT0.00Summed WT0.00 Regional WM0.00Summed WM1.00 The rest and stress images show normal perfusion, normal contraction and thickening. LV Perf. Quant 17 Seg. SSS1.00 17 Seg. SRS0.00 17 Seg. SDS1.00 Stress Defect Extent (% LAD)0.00Rest Defect Extent (% LAD)0.00Rev. Defect Extent (% LAD)0.00 Stress Defect Extent (% LCX) 8.80Rest Defect Extent (% LCX)10.00Rev. Defect Extent (% LCX)3.80 Stress Defect Extent (% RCA)0.00Rest Defect Extent (% RCA)0.00Rev. Defect Extent (% RCA)0.00 Stress Defect Extent (% KRISHAN)1.50Rest Defect Extent (% KRISHAN)1.70Rev. Defect Extent (% KRISHAN)0.70 Other Information Quality:Fair Risk Assessment: Low Risk Conclusion 1. No evidence of EKG changes with stress testing. 2. Normal perfusion at stress/rest. 3. Low risk study. 4. EF > 60%. Signed by : Kirit Guerrero, Electronically Approved : 09/01/2018 14:03:12
[2018-09-01] MEDS ORDERED: LOSARTAN POTASSIUM 50 MG TABLET. PO SCH (14:30)
[2018-09-01] MEDS ORDERED: METO-239 PO (14:38)
[2018-09-01] MEDS ORDERED: AMLO5TAB10 PO (14:38)
--- NOTE | 2018-09-01 14:42 | PDOC3 ---
Discharge Summary Visit Information Date of Admission: Sep 01, 2018 Date of Discharge: Sep 01, 2018 Admitting Diagnosis: chest pain Final Diagnosis Problems Medical Problems: (1) Chest pain most likely musculoskeletal Status: Acute Brief Hospital Course Allergies Allergies Coded Allergies Type Severity Reaction Last Updated Verified Penicillins Allergy Intermediate 08/31/18 Yes Vital Signs Vital Signs Date Time Temp Pulse Resp B/P (MAP) Pulse Ox O2 Delivery O2 Flow Rate FiO2 09/01/18 12:18 Nasal Cannula 3.0 09/01/18 12:18 52 160/68 09/01/18 11:00 97.5 16 100 97.5 Lab Results Laboratory Tests Test 08/31/18 21:23 08/31/18 21:33 08/31/18 22:45 09/01/18 00:20 White Blood Count 7.4 x10^3/uL (4.0-11.0) Red Blood Count 4.04 x10^6/uL (4.30-5.70) Hemoglobin 12.9 g/dL (13.0-17.5) Hematocrit 37.9 % (39.0-53.0) Mean Corpuscular Volume 94 fL (79-100) Mean Corpuscular Hemoglobin 32 pg (25-35) Mean Corpuscular Hemoglobin Concent 34 g/dL (31-37) Red Cell Distribution Width 12.9 % (11.5-14.5) Platelet Count 177 x10^3/uL (140-400) Neutrophils (%) (Auto) 70 % (31-73) Lymphocytes (%) (Auto) 22 % (24-48) Monocytes (%) (Auto) 5 % (0-9) Eosinophils (%) (Auto) 2 % (0-3) Basophils (%) (Auto) 1 % (0-3) Neutrophils # (Auto) 5.2 x10^3uL (1.8-7.7) Lymphocytes # (Auto) 1.7 x10^3/uL (1.0-4.8) Monocytes # (Auto) 0.3 x10^3/uL (0.0-1.1) Eosinophils # (Auto) 0.2 x10^3/uL (0.0-0.7) Basophils # (Auto) 0.1 x10^3/uL (0.0-0.2) Prothrombin Time 13.6 SEC (11.7-14.0) Prothromb Time International Ratio 1.1 (0.8-1.1) Activated Partial Thromboplast Time 32 SEC (24-38) Sodium Level 136 mmol/L (136-145) Potassium Level 4.1 mmol/L (3.5-5.1) Chloride Level 98 mmol/L (98-107) Carbon Dioxide Level 25 mmol/L (21-32) Anion Gap 13 (6-14) 16 mmol/L (6-14) Blood Urea Nitrogen 9 mg/dL (8-26) Creatinine 0.7 mg/dL (0.7-1.3) Estimated GFR (Cockcroft-Gault) 113.9 BUN/Creatinine Ratio 13 (6-20) Glucose Level 97 mg/dL (70-99) 94 mg/dL (70-99) Calcium Level 9.4 mg/dL (8.5-10.1) Total Bilirubin 0.4 mg/dL (0.2-1.0) Aspartate Amino Transf (AST/SGOT) 16 U/L (15-37) Alanine Aminotransferase (ALT/SGPT) 15 U/L (16-63) Alkaline Phosphatase 59 U/L (46-116) Creatine Kinase 42 U/L (39-308) Creatine Kinase MB (Mass) 1.2 ng/mL (0.0-3.6) Creatine Kinase MB Relative Index 2.9 % (0-4) Troponin I Quantitative < 0.017 ng/mL (0.000-0.055) < 0.017 ng/mL (0.000-0.055) Total Protein 8.1 g/dL (6.4-8.2) Albumin 4.3 g/dL (3.4-5.0) Albumin/Globulin Ratio 1.1 (1.0-1.7) Amylase Level 65 U/L (25-115) Lipase 98 U/L (73-393) Bedside Hemoglobin 12.9 g/dL (14-18) Bedside Hematocrit 38 % (37-52) Bedside Sodium 136 mmol/L (135-145) Bedside Potassium 4.0 mmol/L (3.5-5.0) Bedside Chloride 100 mmol/L (98-110) Bedside Total CO2 25 mmol/L (23-32) Bedside Blood Urea Nitrogen 9 mg/dL (8-26) Bedside Creatinine 0.6 mg/dL (0.5-1.4) Bedside Ionized Calcium (Zachariah) 1.16 mmol/L (1.13-1.32) Urine Color Yellow Urine Clarity Clear Urine pH 8.0 Urine Specific Alfred 1.020 Urine Protein Negative mg/dL (NEG-TRACE) Urine Glucose (UA) Negative mg/dL (NEG) Urine Ketones (Stick) Negative mg/dL (NEG) Urine Blood Negative (NEG) Urine Nitrite Negative (NEG) Urine Bilirubin Negative (NEG) Urine Urobilinogen Dipstick 1.0 mg/dL (0.2 mg/dL) Urine Leukocyte Esterase Negative (NEG) Urine RBC 0 /HPF (0-2) Urine WBC Occ /HPF (0-4) Urine Squamous Epithelial Cells Occ /LPF Urine Bacteria 0 /HPF (0-FEW) Test 09/01/18 03:30 Sodium Level 137 mmol/L (136-145) Potassium Level 4.0 mmol/L (3.5-5.1) Chloride Level 100 mmol/L (98-107) Carbon Dioxide Level 26 mmol/L (21-32) Anion Gap 11 (6-14) Blood Urea Nitrogen 10 mg/dL (8-26) Creatinine 0.7 mg/dL (0.7-1.3) Estimated GFR (Cockcroft-Gault) 113.9 Glucose Level 91 mg/dL (70-99) Calcium Level 9.0 mg/dL (8.5-10.1) Magnesium Level 2.0 mg/dL (1.8-2.4) Troponin I Quantitative < 0.017 ng/mL (0.000-0.055) Triglycerides Level 48 mg/dL (0-150) Cholesterol Level 134 mg/dL (0-200) LDL Cholesterol, Calculated 76 mg/dL (0-100) VLDL Cholesterol, Calculated 10 mg/dL (0-40) Non-HDL Cholesterol Calculated 86 mg/dL (0-129) HDL Cholesterol 48 mg/dL (40-60) Cholesterol/HDL Ratio 2.8 Thyroid Stimulating Hormone (TSH) 3.449 uIU/mL (0.358-3.74) Laboratory Tests Test 08/31/18 21:23 08/31/18 21:33 08/31/18 22:45 09/01/18 00:20 White Blood Count 7.4 x10^3/uL (4.0-11.0) Red Blood Count 4.04 x10^6/uL (4.30-5.70) Hemoglobin 12.9 g/dL (13.0-17.5) Hematocrit 37.9 % (39.0-53.0) Mean Corpuscular Volume 94 fL (79-100) Mean Corpuscular Hemoglobin 32 pg (25-35) Mean Corpuscular Hemoglobin Concent 34 g/dL (31-37) Red Cell Distribution Width 12.9 % (11.5-14.5) Platelet Count 177 x10^3/uL (140-400) Neutrophils (%) (Auto) 70 % (31-73) Lymphocytes (%) (Auto) 22 % (24-48) Monocytes (%) (Auto) 5 % (0-9) Eosinophils (%) (Auto) 2 % (0-3) Basophils (%) (Auto) 1 % (0-3) Neutrophils # (Auto) 5.2 x10^3uL (1.8-7.7) Lymphocytes # (Auto) 1.7 x10^3/uL (1.0-4.8) Monocytes # (Auto) 0.3 x10^3/uL (0.0-1.1) Eosinophils # (Auto) 0.2 x10^3/uL (0.0-0.7) Basophils # (Auto) 0.1 x10^3/uL (0.0-0.2) Prothrombin Time 13.6 SEC (11.7-14.0) Prothromb Time International Ratio 1.1 (0.8-1.1) Activated Partial Thromboplast Time 32 SEC (24-38) Sodium Level 136 mmol/L (136-145) Potassium Level 4.1 mmol/L (3.5-5.1) Chloride Level 98 mmol/L (98-107) Carbon Dioxide Level 25 mmol/L (21-32) Anion Gap 13 (6-14) 16 mmol/L (6-14) Blood Urea Nitrogen 9 mg/dL (8-26) Creatinine 0.7 mg/dL (0.7-1.3) Estimated GFR (Cockcroft-Gault) 113.9 BUN/Creatinine Ratio 13 (6-20) Glucose Level 97 mg/dL (70-99) 94 mg/dL (70-99) Calcium Level 9.4 mg/dL (8.5-10.1) Total Bilirubin 0.4 mg/dL (0.2-1.0) Aspartate Amino Transf (AST/SGOT) 16 U/L (15-37) Alanine Aminotransferase (ALT/SGPT) 15 U/L (16-63) Alkaline Phosphatase 59 U/L (46-116) Creatine Kinase 42 U/L (39-308) Creatine Kinase MB (Mass) 1.2 ng/mL (0.0-3.6) Creatine Kinase MB Relative Index 2.9 % (0-4) Troponin I Quantitative < 0.017 ng/mL (0.000-0.055) < 0.017 ng/mL (0.000-0.055) Total Protein 8.1 g/dL (6.4-8.2) Albumin 4.3 g/dL (3.4-5.0) Albumin/Globulin Ratio 1.1 (1.0-1.7) Amylase Level 65 U/L (25-115) Lipase 98 U/L (73-393) Bedside Hemoglobin 12.9 g/dL (14-18) Bedside Hematocrit 38 % (37-52) Bedside Sodium 136 mmol/L (135-145) Bedside Potassium 4.0 mmol/L (3.5-5.0) Bedside Chloride 100 mmol/L (98-110) Bedside Total CO2 25 mmol/L (23-32) Bedside Blood Urea Nitrogen 9 mg/dL (8-26) Bedside Creatinine 0.6 mg/dL (0.5-1.4) Bedside Ionized Calcium (Zachariah) 1.16 mmol/L (1.13-1.32) Urine Color Yellow Urine Clarity Clear Urine pH 8.0 Urine Specific Alfred 1.020 Urine Protein Negative mg/dL (NEG-TRACE) Urine Glucose (UA) Negative mg/dL (NEG) Urine Ketones (Stick) Negative mg/dL (NEG) Urine Blood Negative (NEG) Urine Nitrite Negative (NEG) Urine Bilirubin Negative (NEG) Urine Urobilinogen Dipstick 1.0 mg/dL (0.2 mg/dL) Urine Leukocyte Esterase Negative (NEG) Urine RBC 0 /HPF (0-2) Urine WBC Occ /HPF (0-4) Urine Squamous Epithelial Cells Occ /LPF Urine Bacteria 0 /HPF (0-FEW) Test 09/01/18 03:30 Sodium Level 137 mmol/L (136-145) Potassium Level 4.0 mmol/L (3.5-5.1) Chloride Level 100 mmol/L (98-107) Carbon Dioxide Level 26 mmol/L (21-32) Anion Gap 11 (6-14) Blood Urea Nitrogen 10 mg/dL (8-26) Creatinine 0.7 mg/dL (0.7-1.3) Estimated GFR (Cockcroft-Gault) 113.9 Glucose Level 91 mg/dL (70-99) Calcium Level 9.0 mg/dL (8.5-10.1) Magnesium Level 2.0 mg/dL (1.8-2.4) Troponin I Quantitative < 0.017 ng/mL (0.000-0.055) Triglycerides Level 48 mg/dL (0-150) Cholesterol Level 134 mg/dL (0-200) LDL Cholesterol, Calculated 76 mg/dL (0-100) VLDL Cholesterol, Calculated 10 mg/dL (0-40) Non-HDL Cholesterol Calculated 86 mg/dL (0-129) HDL Cholesterol 48 mg/dL (40-60) Cholesterol/HDL Ratio 2.8 Thyroid Stimulating Hormone (TSH) 3.449 uIU/mL (0.358-3.74) Brief Hospital Course Mr. Julian is a 63 old male who presented with chest discomfort after shoveling snow outside our institution. The patient underwent a cardiac evaluation with negative troponins on 3 occasions and he underwent a stress test as well with negative findings were ischemic changes. The patient was found to be bradycardic was likely secondary to his beta-blockade and adjustments were done to his medications. The patient was started on Norvasc 5 mg for blood pressure control he will continue with his 100 mg of losartan and his Toprol dose has been reduced to 12.5 mg daily off the extended release form. Patient was encouraged to follow up with his primary care physician at the [facility] and with his pin chaser at the [facility] as soon as possible. Signs and symptoms of alarm were discussed with the patient prior to discharge. He was advised to stop metoprolol for 48 hours before starting the new dosing. Patient was also advised to check Sproles prior taking Toprol and to hold the medication if his heart rate is less than 50. Thank for allowing [facility] care for the patient Discharge Information Condition at Discharge: Improved Follow Up: Weeks Disposition/Orders: D/C to Home Scheduled Amlodipine Besylate (Amlodipine Besylate) 5 Mg Tablet, 5 MG PO DAILY for HTN for 30 Days, #30 Prescribed by: GINA OBRIEN MD on 09/01/18 1438 Cholecalciferol (Vitamin D3) (Vitamin D3) 1,000 Unit Tablet, 1 TAB PO DAILY for supplement, #30 Ref 5 (Reported) Entered as Reported by: NAJMA DENIS on 09/01/181304 Last Action: New Order on 09/01/181304 by NAJMA DENIS Folic Acid (Folic Acid) 1 Mg Tablet, 1 TAB PO DAILY for supplement, #90 Ref 1 ( Reported) Entered as Reported by: NAJMA DENIS on 09/01/181302 Last Action: New Order on 09/01/181302 by NAJMA DENIS Losartan Potassium (Losartan Potassium) 100 Mg Tablet, 100 MG PO DAILY for HYPERTENSION, (Reported) Entered as Reported by: NAJMA DENIS on 09/01/181304 Last Action: New Order on 09/01/181304 by NAJMA DENIS Metoprolol Succinate (Metoprolol Succinate ( Xl )) 25 Mg Tab.er.24h, 0.5 TAB PO DAILY for HTN for 30 Days, #15 Ref 5 Prescribed by: GINA OBRIEN MD on 09/01/181437 Multivitamin (Multivitamins) 1 Each Tablet, 1 TAB PO DAILY for supplement, #90 Ref 3 (Reported) Entered as Reported by: NAJMA DENIS on 09/01/181304 Last Action: New Order on 09/01/181304 by NAJMA DENIS Discontinued Medications Metoprolol Succinate (Toprol Xl) 50 Mg Tab.er.24h, 50 MG PO DAILY for FOR HYPERTENSION, #30 Ref 0 (Reported) Entered as Reported by: NAJMA DENIS on 09/01/181321 Last Action: New Order on 09/01/181321 by GINA STRATTON MD Sep 01, 2018 14:42
--- NOTE | 2018-09-01 16:48 | NUR ---
Discharge Note: ADE BLEVINS Discharge instructions and discharge home medications reviewed with Patient and a copy given. All questions have been answered and understanding verbalized. The following instructions and handouts were given: diet, medications, chest pain, follow up, hyper and hypotension. Discontinued lines and drains: IV removed. no lines present. Patient discharged to home. took patient to ER. He said his ride would be [facility]. Took him over there and his ride had not arrived. He insisted on waiting outside for him and would not return to [facility] to wait. Patient was steady on his feet and ambulated out to the exterior of medical [facility] to wait for his ride. I called his cell after 15 minutes and he is still waiting. will call again.
--- NOTE | 2018-09-01 17:08 | NUR ---
Followed up with the patient again at 1710. says his ride is just around the corner and he refused to return to the floor. He said he will call when his ride arrives. Addendum: 09/01/18 at 1735 by ZEYAD ALDRIDGE RN Patient called and confirmed that his ride had picked him up.
[2018-09-02] MEDS ORDERED: PANTOPRAZOLE 40 MG TABLET.DR. PO SCH (07:30)
== END 2018-09-01 17:35 | disposition home or self-care (01) ==
LOC: ER 21:14 → 2 NORTH 23:15
PROVIDERS: ADMIT Internal Medicine; ATTEND Internal Medicine
DX: R07.89 Other chest pain (principal); J44.9 Chronic obstructive pulmonary disease, unspecified; F32.9 Major depressive disorder, single episode, unspecified; I10 Essential (primary) hypertension; F12.90 Cannabis use, unspecified, uncomplicated; J43.9 Emphysema, unspecified; R56.9 Unspecified convulsions; F17.210 Nicotine dependence, cigarettes, uncomplicated; Z79.01 Long term (current) use of anticoagulants; Z95.2 Presence of prosthetic heart valve
CPT/HCPCS: 36415; 71045; 71275; 74174; 78452; 80047; 80048; 80053; 80061; 81001; 82150; 82550; 82553; 83690; 83735; 84443; 84484; 85025; 85610; 85730; 93005; 93017; 93306; 94640; 96374; 96375; 96376; 99284; A9500; G0378; J2270; J2405; J2785; J7030; J7620; Q9967; G0379